=== PATIENT | female | born 1945 | race Caucasian/White ===

== ENCOUNTER 2016-11-18 09:08 | Inpatient (IN) | payer MEDICARE, OTHER ==
--- NOTE | ~2016-11-18 | DS ---
Discharge Summary [id number] [place]. [address] NAME: ILAN SOLORIO : 49 STATUS : DIS IN PAT#: [id number] AGE: 71 ADM/REG DATE : 11/18/16 MR#: [id number] REPORT SERV DATE: 11/21/16 DICTATED BY: KALEN LEE DATE: 11/21/16 REPORT STATUS : Draft TRANSCRIBED BY: MODL DATE: 11/21/16 ADMISSION DATE: 11/18/2016 DISCHARGE DATE: 11/21/2016 REASON FOR ADMISSION: Right lower extremity cellulitis. HISTORY OF PRESENT ILLNESS: Please refer Dr. Peggy Guzmán' history and physical dated 11/18/2016, for complete details regarding the patient's admission. The patient was admitted to the hospitalist service for right foot cellulitis and diabetic foot ulcer. HOSPITAL COURSE: The patient had uncomplicated hospital course. Dr. Guzmán admitted the patient, started her on IV Zosyn and vancomycin. Wound cultures were obtained showing MSSA and group B strep. She had a marked improvement in her right lower extremity cellulitis. On the day of admission, it was almost all the way up to her knee when I assumed care of her, which was the day after admission. Her cellulitis over her femur had mostly resolved. She will be switched to an oral antibiotic. She has reached maximal hospitalization, an MRI was obtained on 11/19/2016, which showed Charcot foot with early rocker bottom deformity, soft tissue breakdown deep to the calcaneal bone suggesting some nonspecific edema, but no osteomyelitis seen at this time. The patient will be discharged today in stable condition. DISCHARGE DIAGNOSES: Right foot cellulitis likely secondary to MSSA and strep, now resolving. Insulin-dependent diabetes with neuropathy. Charcot-Charu deformity, hyperlipidemia, hypertension, small toe ulcer, and peripheral arterial disease. PROCEDURES: Include MRI. DISCHARGE MEDICATIONS: Include Augmentin 875 mg twice a day for seven days, Percocet 5/325 mg every eight hours p.r.n. pain #20 given, Lotrel 5/10 every morning, aspirin 81 mg daily, Cymbalta 60 mg every morning, insulin glargine 18 units every morning along with 20 units at bedtime, magnesium oxide 400 mg daily, metformin 2000 mg every morning, Trulicity 1.5 mg subcu every seven days, Invokana 100 mg every day, Crestor 10 mg at bedtime, Turmeric, Centrum, Tylenol, eyedrops. FOLLOWUP: The patient will follow up with her PCP as scheduled. CHEYANNE/MANI Kalen Lee MD / [id number] CC: Kalen Lee MD Discharge Summary [address] [address] NAME: ILAN SOLORIO : 49 STATUS : DIS IN [facility]#: [id number] AGE: 71 ADM/REG DATE : 11/18/16 MR#: [id number] REPORT SERV DATE: 11/21/16 DICTATED BY: KALEN LEE DATE: 11/21/16 REPORT STATUS : Draft TRANSCRIBED BY: MANI DATE: 11/21/16 Eric Morocho M.D.
--- NOTE | ~2016-11-18 | HP ---
History And Physical [address] [facility] [place]. [address] NAME: ILAN SOLORIO : 49 STATUS : ADM IN [facility]#: [id number] AGE: 71 ADM/REG DATE : 11/18/16 MR#: [id number] REPORT SERV DATE: 11/18/16 DICTATED BY: ABEBE GUZMÁN DATE: 11/18/16 REPORT STATUS : Draft TRANSCRIBED BY: MODL DATE: 11/18/16 DATE OF ADMISSION: 11/18/2016 CHIEF COMPLAINT: Right-sided foot pain and redness. HISTORY OF PRESENT ILLNESS: The patient is a 71-year-old white female. She has a long- standing history of diabetes mellitus diagnosed in 2000, she is currently on insulin. She has a history of significant vascular disease. She had carotid stenosis and underwent a right carotid endarterectomy in July of this year. She also has bilateral lower extremity disease and ultimately had a stent. She reports to her right leg in 2015 and then she had stenting and ballooning to her left leg in 08/2016. She previously had a wound on her foot, but that subsequently healed. She states on Tuesday she noted her foot was swollen and red. Her shoe and her boot would not fit, she was wearing sandals that day shopping, she states she soaked it in Epsom salt on Tuesday. She had a 101 fever and chills. After Tuesday, she did not have any further fever and chills. She continued to soak it intermittently in Epsom salt and also elevated her foot. She did not seek medical care until today when her daughter saw the foot and insisted she come to the hospital. She has not had any nausea or vomiting. No chest pain. No shortness of breath. She has otherwise felt well. Her appetite has not been affected. She does not feel any pain in the foot as she has peripheral neuropathy. PAST MEDICAL HISTORY: 1. Diabetes mellitus since 2001 insulin-dependent. 2. Significant PAD including carotid disease and bilateral lower extremity disease with right carotid endarterectomy and procedures to both legs. 3. Hypertension. 4. Hyperlipidemia. 5. Significant peripheral neuropathy. 6. Diabetic retinopathy. SURGICAL HISTORY: 1. She has had a right carotid endarterectomy. 2. She has had endovascular interventions to both lower extremities to include stents and possibly balloons. 3. Back surgery. 4. Neck surgery. 5. Left TKA. SOCIAL HISTORY: She never smoked. She did have secondhand exposure. She does not drink alcohol. She is , her is at bedside. FAMILY HISTORY: Her father had osteoarthritis, diabetes, and cirrhosis. Her mother probably had a stroke, but they are not sure. HOME MEDICATIONS: Reviewed and attached. History And Physical [address] [address] NAME: ILAN SOLORIO : 49 STATUS : ADM IN [facility]#: [id number] AGE: 71 ADM/REG DATE : 11/18/16 MR#: [id number] REPORT SERV DATE: 11/18/16 DICTATED BY: ABEBE GUZMÁN DATE: 11/18/16 REPORT STATUS : Draft TRANSCRIBED BY: MANI DATE: 11/18/16 REVIEW OF SYSTEMS: Full 10-point review of systems is obtained. Pertinent positives are mentioned in the HPI. PHYSICAL EXAMINATION: VITAL SIGNS: BP 182/68 initially, temp 98.1, pulse 75, respiratory rate 22, sats are 100%. Repeat blood pressure 173/50. GENERAL: Well-developed white female, in no apparent distress. HEENT: Normocephalic, atraumatic. Throat is clear. NECK: Supple with no thyromegaly. HEART: Regular rate and rhythm without murmurs, rubs, or gallops. LUNGS: Grossly clear with good symmetric air entry. ABDOMEN: Soft, nontender, nondistended. EXTREMITIES: She has 2+ pulses at both feet in her dorsalis pedis. Her right foot is red and swollen. She has an ulcer under her second toe, there is no purulent drainage. The erythema from her cellulitis extends up into her tibia, the anterior tibia area just below the knee. Her leg is also swollen on that side. The left leg is normal color with no swelling and 2+ pulse. NEUROLOGIC: She is alert. She is oriented to person, place, and time. She moves all four extremities with symmetrical strength and good tone, 5/5. Cranial nerves 2 through 12 are intact. PSYCH: She is alert. Her mood and affect are appropriate. LABORATORY AND X-RAY: CBC is essentially normal other than hemoglobin of 11.4, and her electrolyte panel is normal other than glucose of 183. Right ankle film does not show any fracture or osteomyelitis. ASSESSMENT/PLAN: 1. Right foot cellulitis with associated diabetic foot ulcer on her second toe, probable diabetic foot infection, certainly will rule out osteo with MRI. We will place her on empiric Zosyn and vancomycin. We will have the Wound Care nurse see her in consultation. We will culture the wound hopefully with antibiotic, she will improve and not require additional surgeries. She does have blood flow to the foot as she has a good pulse. Dr. Cannon has seen her in the past, he is going to round on her tomorrow and see if he has any additional suggestions. We will follow up her MRI and follow her clinical exam. 2. Hypertension. Her blood pressure is up a bit this morning, looks like she has already had her blood pressure medicine today. I am going to add a low-dose beta-nichelle to her regimen to see if we can get better control of her blood pressure. 3. Diabetes mellitus. We do not have Invokana or Trulicity on her formulary. We will substitute some mealtime short-acting insulin with sliding scale and continue her long- acting insulin. Her last A1c was 6.9 in September. 4. Hyperlipidemia, continue home medications. 5. Peripheral neuropathy. 6. Diabetic retinopathy. 7. History of peripheral arterial disease, good pulses at the feet bilaterally. 8. Deep venous thrombosis prophylaxis, subcu Lovenox. 9. Disposition, pending above. Aforementioned plan and workup. History And Physical [address] [address] NAME: ILAN SOLORIO : 49 STATUS : ADM IN [facility]#: [id number] AGE: 71 ADM/REG DATE : 11/18/16 MR#: [id number] REPORT SERV DATE: 11/18/16 DICTATED BY: ABEBE GUZMÁN DATE: 11/18/16 REPORT STATUS : Draft TRANSCRIBED BY: MANI DATE: 11/18/16 HOMAR/MANI Abebe Guzmán M.D. / [id number] CC: MD Eric Chavez M.D. Helio Cannon M.D.
[2016-11-18 09:04] LABS: BASOPHILS 0.2 %; BASOPHILS ABSOLUTE 0.02 10/3/uL (0.0-0.16); EOSINOPHILS 3.7 %; EOSINOPHILS ABSOLUTE 0.31 10/3/uL (0.0-0.53); ER CBC TAT 0 Hrs 08 Mins; HEMOGLOBIN 11.4 g/dL (12.0-16.0); IMMATURE GRANULOCYTES 0.2 %; IMMATURE GRANULOCYTES ABSOLUTE 0.02 10/3/uL (0.0-0.11); LYMPHOCYTES 28.1 %; LYMPHOCYTES ABSOLUTE 2.34 10/3/uL (0.67-4.30); MEAN CORPUS HGB CONC 32.7 g/dL (32.0-36.0); MEAN CORPUSCULAR HEMOGLOB 28.2 pg (26.0-34.0); MEAN CORPUSCULAR VOLUME 86.4 fL (80-100); MEAN PLATELET VOLUME 9.3 fL (9.2-13.0); MONOCYTES 11.2 %; MONOCYTES ABSOLUTE 0.93 10/3/uL (0.21-1.20); NEUTROPHILS 56.6 %; NEUTROPHILS ABSOLUTE 4.72 10/3/uL (2.02-8.40); PLATELET COUNT 351 10/3/uL (150-400); RBC DISTRIBUTION WIDTH 13.5 % (12.0-16.0); RED CELL COUNT 4.04 10/6/uL (4.0-5.6); WHITE BLOOD CELLS 8.3 10/3/uL (4.5-10.5)
[2016-11-18 09:05] LABS: HEMATOCRIT 34.9 % (36.0-48.0); MANUAL DIFF NO %
[~2016-11-18 09:08] MED LIST: BYETTA SC; CARDCD240 PO; CELEBREX2 PO; CYMBALTA60 PO; DIL2TAB PO; DIL4TAB PO; FISH-EPA1000 MG PO; FORTAMET1000 MG PO; HUMULIN N1 ML SC; LOTREL1 CA2 PO; NASACORTAQ NAS; NEXIUM40 PO; PRESSURE VISION PO; VYTORIN 10/20 T1 TAB PO; ZOCOR20 PO; ZYRTEC ALLGY10 MG PO; [UNRECOGNIZED DRUG - OTHER]; [UNRECOGNIZED DRUG - OTHER]; [UNRECOGNIZED DRUG - OTHER]
[2016-11-18 09:20] LABS: BUN (BLOOD UREA NITROGEN) 20 MG/DL (6-23); CALCIUM, SERUM 9.6 MG/DL (8.5-10.4); CHLORIDE, SERUM 103 MMOL/L (96-112); CO2 (CARBON DIOXIDE) 29 MMOL/L (24-34); CREATININE 0.88 MG/DL (0.55-1.02); GFR AFRICAN AMERICAN 78 ML/MIN (>=60); GFR NON AFRICAN AMERICAN 67 ML/MIN (>=60); POTASSIUM, SERUM 4.3 MMOL/L (3.5-5.3); SODIUM, SERUM 138 MMOL/L (135-148)
[2016-11-18 09:26] LABS: GLUCOSE, SERUM 183 MG/DL (60-99)
[2016-11-18] MEDS ORDERED: FORTAMET1000 MG PO (11:01)
[2016-11-18] MEDS ORDERED: LANTUSCART SC ×2 (11:03)
[2016-11-18] MEDS ORDERED: TRULICITY1.5 MG/0.5 SQ (11:03)
[2016-11-18] MEDS ORDERED: CYMBALTA60 PO (11:04)
[2016-11-18] MEDS ORDERED: INVOKANA100 MG PO (11:04)
[2016-11-18] MEDS ORDERED: LOTREL1 CA1 PO (11:04)
[2016-11-18] MEDS ORDERED: CRESTOR10 PO (11:05)
[2016-11-18] MEDS ORDERED: ASAB PO (11:05)
[2016-11-18] MEDS ORDERED: MAGOX4 PO (11:05)
[2016-11-18] MEDS ORDERED: TURMERIC OTC PO (11:05)
[2016-11-18] MEDS ORDERED: CENTRUM PO (11:06)
[2016-11-18] MEDS ORDERED: 8 HOUR650 MG PO (11:06)
[2016-11-18] MEDS ORDERED: SYSTANE OPH (11:06)
[2016-11-18 14:44] LABS: PROCALCITONIN 0.05 ng/mL (<0.5)
[2016-11-19 06:34] LABS: BASOPHILS 0.3 %; BASOPHILS ABSOLUTE 0.02 10/3/uL (0.0-0.16); EOSINOPHILS 5.6 %; EOSINOPHILS ABSOLUTE 0.39 10/3/uL (0.0-0.53); HEMATOCRIT 34.4 % (36.0-48.0); HEMOGLOBIN 11.2 g/dL (12.0-16.0); IMMATURE GRANULOCYTES 0.3 %; IMMATURE GRANULOCYTES ABSOLUTE 0.02 10/3/uL (0.0-0.11); LYMPHOCYTES 40.2 %; LYMPHOCYTES ABSOLUTE 2.78 10/3/uL (0.67-4.30); MEAN CORPUS HGB CONC 32.6 g/dL (32.0-36.0); MEAN CORPUSCULAR HEMOGLOB 28.6 pg (26.0-34.0); MEAN PLATELET VOLUME 9.6 fL (9.2-13.0); MONOCYTES 11.8 %; MONOCYTES ABSOLUTE 0.82 10/3/uL (0.21-1.20); NEUTROPHILS 41.8 %; NEUTROPHILS ABSOLUTE 2.89 10/3/uL (2.02-8.40); PLATELET COUNT 373 10/3/uL (150-400); RBC DISTRIBUTION WIDTH 13.7 % (12.0-16.0); RED CELL COUNT 3.91 10/6/uL (4.0-5.6); WHITE BLOOD CELLS 6.9 10/3/uL (4.5-10.5)
[2016-11-19 06:38] LABS: MANUAL DIFF NO %
[2016-11-19 06:46] LABS: BUN (BLOOD UREA NITROGEN) 20 MG/DL (6-23); CALCIUM, SERUM 9.7 MG/DL (8.5-10.4); CHLORIDE, SERUM 103 MMOL/L (96-112); CO2 (CARBON DIOXIDE) 33 MMOL/L (24-34); CREATININE 0.91 MG/DL (0.55-1.02); GFR AFRICAN AMERICAN 75 ML/MIN (>=60); GFR NON AFRICAN AMERICAN 64 ML/MIN (>=60); POTASSIUM, SERUM 4.5 MMOL/L (3.5-5.3); SODIUM, SERUM 139 MMOL/L (135-148)
[2016-11-19 06:48] LABS: GLUCOSE, SERUM 139 MG/DL (60-99)
[2016-11-21] MEDS ORDERED: AUG875 PO (11:12)
[2016-11-21] MEDS ORDERED: PCET PO (11:14)
[2017-01-29] MEDS ORDERED: FORTAMET1000 MG PO (02:42)
[2017-01-29] MEDS ORDERED: TRULICITY1.5 MG/0.5 SC (02:42)
[2017-01-29] MEDS ORDERED: LANTUSCART SC ×2 (02:43)
[2017-01-29] MEDS ORDERED: LOTREL1 CA1 PO (02:44)
[2017-01-29] MEDS ORDERED: CYMBALTA60 PO (02:44)
[2017-01-29] MEDS ORDERED: NEXIUM40 PO (02:45)
[2017-01-29] MEDS ORDERED: CRESTOR10 PO (02:45)
[2017-01-29] MEDS ORDERED: ASAB PO (02:45)
[2017-01-29] MEDS ORDERED: TUMERIC 500MG OTC PO (02:46)
[2017-01-29] MEDS ORDERED: MAGNESIUM CHLORIDE PO (02:46)
[2017-01-29] MEDS ORDERED: CENTRUM PO (02:47)
[2017-01-29] MEDS ORDERED: FERROUS SULF325 M1 PO (02:47)
[2017-01-29] MEDS ORDERED: VITAMIN D31000 UNIT PO (02:47)
[2017-02-01] MEDS ORDERED: DURICEF PO (13:34)
[2017-02-01] MEDS ORDERED: PCET PO (13:35)
[2017-02-01] MEDS ORDERED: COREG6 PO (13:35)
== END 2016-11-21 11:44 | disposition home or self-care (01) | DRG 603 ==
LOC: ER 09:08 → 5SO 12:43
PROVIDERS: Internal Medicine; Nurse Practitioner
DX: L03.115 Cellulitis of right lower limb (principal); E11.40 Type 2 diabetes mellitus with diabetic neuropathy, unspecified; E11.621 Type 2 diabetes mellitus with foot ulcer; B95.61 Methicillin susceptible Staphylococcus aureus infection as the cause of diseases classified elsewhere; B95.1 Streptococcus, group B, as the cause of diseases classified elsewhere; E11.610 Type 2 diabetes mellitus with diabetic neuropathic arthropathy; E11.319 Type 2 diabetes mellitus with unspecified diabetic retinopathy without macular edema; I73.9 Peripheral vascular disease, unspecified; I10 Essential (primary) hypertension; E78.5 Hyperlipidemia, unspecified; L97.513 Non-pressure chronic ulcer of other part of right foot with necrosis of muscle; Z79.4 Long term (current) use of insulin; Z79.84 Long term (current) use of oral hypoglycemic drugs; Z79.82 Long term (current) use of aspirin; Z79.899 Other long term (current) drug therapy
CPT/HCPCS: 73610-RT; 73718-RT; 80048; 82962; 84145; 85025; 87040; 87070; 87077; 87186; 87205; 99284; A9270-GY; J2543; J3370